=== PATIENT | male | born 1955 | race African-American/Black ===

== ENCOUNTER 2019-02-05 10:50 | Inpatient (IN) ==
[2019-02-05 12:31] LABS: Basophils # 0.1 10*3/uL (0.0-0.2); Basophils % 0.9 % (0.0-0.8); Eosinophils # 0.3 10*3/uL (0.0-0.87); Eosinophils % 2.9 % (0.00-10.9); Hematocrit 48.4 VOL% (42.0-52.0); Hemoglobin 15.8 GM/DL (14.0-18.0); Immature Granulocytes % 0.6 %; Immature Granulocytes Absolute 0.05 #; Lymphocytes # 2.3 10*3/uL (1.4-4.0); Mean Corpuscular HGB Conc 32.6 GM/DL (32-36); Mean Corpuscular Hemoglobin 28 PG (27-34); Mean Corpuscular Volume 84.9 FL (87-102); Mean Platelet Volume 9.4 FL (9.6-12.0); Monocytes # 0.8 10*3/uL (0.11-0.8); Monocytes % 8.9 % (1.7-12.7); Neutrophils # 5.6 10*3/uL (1.4-7.4); Neutrophils % 61.7 % (38.7-73.9); Platelet Count 439 T/CUMM (130-400); Red Cell Distribution Width 13.7 % (9.3-17.3); White Blood Count 9.1 T/CUMM (4-12)
[2019-02-05 13:03] LABS: Apearance,Urine Slightly Hazy (Clear); Bilirubin,Urine Negative (Negative); Blood, Urine Small mg/dL (Negative); Glucose,Urine (UA) Negative (Negative); Ketones,Urine 20 mg/dL (Negative); Mucus,Urine Many /LPF (Occasional); Nitrite,Urine Negative (Negative); Protein,Urine 100 MG/DL; RBC,Urine 4 /HPF (0-4); Squamous Epithelial Cell,Urine Occasional /HPF (0-10); Urine Color Amber (Yellow); Urine Specific Gravity 1.031 (1.001-1.035); WBC,Urine 2 /HPF (0-6)
[2019-02-05 13:07] LABS: Albumin 2.6 G/DL (3.4-5.0); Bilirubin,Total 0.5 MG/DL (0.2-1.0); Calcium 9.8 MG/DL (8.5-10.1); Potassium 3.8 MMOL/L (3.5-5.1); Total Protein 8.3 G/DL (6.4-8.3)
[2019-02-05] MEDS ORDERED: DOCUSATE SODIUM 100 MG CAPSULE PO PRN (14:57)
[2019-02-05] MEDS ORDERED: ACETAMINOPHEN 325 MG TABLET PO PRN (14:57)
[2019-02-05] MEDS ORDERED: traZODone 50 MG TABLET PO PRN (14:57)
[2019-02-05] MEDS ORDERED: ONDANSETRON 4 MG/2 ML VIAL IV PRN (14:57)
[2019-02-05] MEDS ORDERED: SODIUM CHLORIDE 0.9% 1,000 ML IV SCH (15:30)
[2019-02-05] MEDS: ENOXAPARIN 40 MG/0.4 ML SYRINGE SUBCUT SCH (16:40)
[2019-02-05] MEDS ORDERED: BENZONATATE 100 MG CAPSULE PO PRN (20:42)
[2019-02-06 04:43] LABS: Basophils # 0.1 10*3/uL (0.0-0.2); Basophils % 0.6 % (0.0-0.8); Eosinophils # 0.5 10*3/uL (0.0-0.87); Eosinophils % 5.3 % (0.00-10.9); Hematocrit 44.3 VOL% (42.0-52.0); Hemoglobin 14.5 GM/DL (14.0-18.0); Immature Granulocytes % 0.6 %; Immature Granulocytes Absolute 0.05 #; Lymphocytes # 2.2 10*3/uL (1.4-4.0); Lymphocytes % 24.5 % (21.2-54.2); Mean Corpuscular HGB Conc 32.7 GM/DL (32-36); Mean Corpuscular Hemoglobin 28 PG (27-34); Mean Corpuscular Volume 84.4 FL (87-102); Mean Platelet Volume 10.2 FL (9.6-12.0); Monocytes # 1.1 10*3/uL (0.11-0.8); Monocytes % 12.3 % (1.7-12.7); Neutrophils % 56.7 % (38.7-73.9); Platelet Count 381 T/CUMM (130-400); Red Blood Count 5.25 MC/CUMM (3.8-5.5); Red Cell Distribution Width 13.4 % (9.3-17.3); White Blood Count 8.9 T/CUMM (4-12)
[2019-02-06 05:14] LABS: Bilirubin,Total 1.1 MG/DL (0.2-1.0); Osmolality,Calculated 272.7 MOS/KG (273-304); Potassium 3.9 MMOL/L (3.5-5.1); Total Protein 6.9 G/DL (6.4-8.3)
[2019-02-06] MEDS ORDERED: MEPERIDINE 50 MG/1 ML VIAL IM ONE (09:00)
[2019-02-06] MEDS ORDERED: diphenhydrAMINE 50 MG/1 ML VIAL IM ONE (09:00)
[2019-02-06] MEDS ORDERED: BENZONATATE 100 MG CAPSULE PO ONE (09:01)
[2019-02-06 09:14] LABS: PT Patient Result 10.8 SECS; Partial Thromboplastin Time 32.2 SECS (0-40)
[2019-02-06] MEDS ORDERED: LIDOCAINE 1% 20 ML VIAL MISC INJ ONE (09:30)
[2019-02-06] MEDS ORDERED: LIDOCAINE 2% VISCOUS 100 ML BOTTLE SWISH/SPIT ONE (09:30)
[2019-02-06] MEDS ORDERED: LIDOCAINE 2% 20 ML VIAL RESP TX ONE (09:30)
[2019-02-06] MEDS ORDERED: EPINEPHrine 1 MG/ML VIAL ET ONE (10:17)
[2019-02-06] MEDS ORDERED: EPINEPHrine 1 MG/ML VIAL ONE (10:48)
[2019-02-06] MEDS: MORPHINE 4 MG/1 ML VIAL IV PRN ×2 (11:39→15:50)
[2019-02-06] MEDS: PANTOPRAZOLE 40 MG TABLET PO SCH (12:52)
[2019-02-06] MEDS: ASPIRIN EC 81 MG TABLET PO SCH (12:52)
[2019-02-06] MEDS: amLODIPine 5 MG TABLET PO SCH (12:52)
[2019-02-06] MEDS: ENOXAPARIN 40 MG/0.4 ML SYRINGE SUBCUT SCH (15:44)
[2019-02-06] MEDS ORDERED: DICLOFENAC 1% GEL 100 GM TUBE TOP PRN (22:07)
[2019-02-07 05:16] LABS: Basophils % 0.5 % (0.0-0.8); Eosinophils # 0.4 10*3/uL (0.0-0.87); Hematocrit 43.5 VOL% (42.0-52.0); Hemoglobin 14.5 GM/DL (14.0-18.0); Immature Granulocytes % 0.2 %; Immature Granulocytes Absolute 0.02 #; Lymphocytes # 1.9 10*3/uL (1.4-4.0); Lymphocytes % 22.2 % (21.2-54.2); Mean Corpuscular HGB Conc 33.3 GM/DL (32-36); Mean Corpuscular Hemoglobin 28 PG (27-34); Mean Corpuscular Volume 83.7 FL (87-102); Monocytes # 1.1 10*3/uL (0.11-0.8); Monocytes % 12.9 % (1.7-12.7); Neutrophils % 59.2 % (38.7-73.9); Platelet Count 420 T/CUMM (130-400); Red Cell Distribution Width 13.6 % (9.3-17.3); White Blood Count 8.5 T/CUMM (4-12)
[2019-02-07 05:41] LABS: Albumin 2.2 G/DL (3.4-5.0); Bilirubin,Total 0.6 MG/DL (0.2-1.0); Calcium 9.3 MG/DL (8.5-10.1); Potassium 3.5 MMOL/L (3.5-5.1); Total Protein 7.1 G/DL (6.4-8.3)
[2019-02-07 05:51] LABS: Free T4 (Free Thyroxine) 1.39 NG/DL (0.76-1.46); Thyroid Stimulating Hormone 1.16 uIU/ml (0.358-3.74)
[2019-02-07 07:57] VITALS: BP 139/69
[2019-02-07] MEDS: PANTOPRAZOLE 40 MG TABLET PO SCH (09:41)
[2019-02-07] MEDS: ASPIRIN EC 81 MG TABLET PO SCH (09:41)
[2019-02-07] MEDS: amLODIPine 5 MG TABLET PO SCH (09:41)
== END 2019-02-07 09:58 | disposition home or self-care (01) | DRG 181 ==
LOC: N.ED 10:50 → N.EDINP 14:57 → N.4E 16:08
PROVIDERS: ADMIT Internal Medicine; ATTEND Internal Medicine